=== PATIENT | male | born 1970 | race Caucasian/White ===

== ENCOUNTER 2020-09-16 21:45 | Emergency (ER) | payer BC, SELFPAY ==
[2020-09-16 22:09] VITALS: BP 126/81; BP 163/117; PULSE 111; PULSE 113; RESP 19; TEMP 36.8; O2SAT 94; O2SAT 95; BMI 42.5
--- NOTE | 2020-09-16 22:12 | ED.HEATRA ---
HPI - Head Injury General Chief complaint: General Medical Stated complaint: ETOH,FALL,+HEADSTRIKE,-THINNERS,+COLLAR Time Seen by Provider: 09/16/20 22:12 Source: EMS Mode of arrival: EMS Limitations: no limitations History of Present Illness HPI Narrative: Patient drank alcohol and smoked marijuana got up from bed and fell hitting back of head Complaint: head injury Onset (ago): hour(s) Arrival Conditions: C-spine immobilization present Mechanism of Injury: fall Place: home Loss of Consciousness: unsure Location of injury: occipital Severity: mild Related Data Allergies Allergy/AdvReac Type Severity Reaction Status Date / Time No Known Allergies Allergy Verified 09/16/20 22:40 Review of Systems Review of Systems: Yes Unobtainable due to mental status and Other (intoxication) Neurologic: Denies Sensory deficit (Neuro) [facility] Past Medical History Medical History Diverticulitis Hernia Hypothyroid Pre-diabetes Surgical History History of colon surgery Social History Social History Alcohol intake: current Alcohol intake frequency: 3 or more drinks per day Alcohol type: beer Smoking Status: Never smoker Use of substances other than those prescribed or required for medical reasons: Yes Substance Use Type: Marijuana Substance Use Frequency: Daily Advance Directives: No Advance Directives Information Provided: Yes Physical Exam Vital Signs: Vital Signs: Last Vital Signs Temp 98.2 F 09/16/20 22:09 Pulse 114 H 09/16/20 23:20 Resp 16 09/16/20 23:20 BP 128/76 09/16/20 23:20 Pulse Ox 93 09/16/20 23:20 Body Mass Index 42.5 Const: Other: obese male in c collar, intoxicated Nutritional Appearance: obese Orientation/consciousness: oriented to person Limitations: altered mental status HENMT: Head: Yes normal to inspection Ears: external ears normal General nose exam: Normal external nose present Mouth: Normal oral and palatal mucosa present and oropharynx normal Throat: Yes posterior oropharynx normal Eyes: General: appearance normal, both eyes and all related structures Neck: Other: supple Neck: Yes normal visual inspection Chest: Chest palpation & inspection: normal inspection of the chest Resp: Auscultation: clear to auscultation bilaterally Cardio: Jugular venous distension: no JVD Rate: regular rate Rhythm: regular rhythm Heart sounds: S1 normal heart sound present and S2 normal heart sound present GI: Inspection: Yes normal to inspection Palpation (GI): Soft to palpation, nontender and No hepatosplenomegaly present Auscultation: normal bowel sounds : General: Yes no CVA tenderness Back/Spine/Pelvis: Back: no CVA tenderness Skin: General skin exam: no rashes or lesions noted Neuro: General: oriented to person Cranial nerves: Yes CN's II-XII intact bilaterally Motor exam (neuro): 5/5 motor strength present throughout Sensory Exam: No Sensory deficit (Neuro) Extrem: General: Yes normal to inspection Psych: Appearance: grossly normal Procedures Procedure Narrative Procedure Narrative: Patient prepped with betadine, 4 adrienne placed, patient tolerated procedure well MDM - Head Injury MDM Narrative Medical decision making narrative: Patient intoxicated with fall and head laceration will dc home. CT of cervical spine and head are negative Imaging Data CT scan - head: Radiologist's impression: no brain injury CT neck: Radiologist's impression: no fracture Discharge Plan Discharge Clinical Impression: Laceration of head Qualifiers: Encounter type: initial encounter Location of open wound of head: scalp Foreign body presence: without foreign body Qualified Code(s): S01.01XA - Laceration without foreign body of scalp, initial encounter Alcohol intoxication Qualifiers: Complication of substance-induced condition: uncomplicated Qualified Code(s): F10.920 - Alcohol use, unspecified with intoxication, uncomplicated Patient Disposition: Home, Self-Care Instructions: Laceration (ED) Additional Instructions: staple removal 10 days Referrals: Angélica Thomas NP [Primary Care Provider] - 2 days
--- NOTE | 2020-09-16 22:40 | CT_ITS ---
EXAMINATIONS: CT HEAD WITHOUT CONTRAST AND CT CERVICAL SPINE WITHOUT CONTRAST CLINICAL INFORMATION: Fall. Trauma. COMPARISON: None. TECHNIQUE: Contiguous helical images of the brain were obtained without IV contrast. Contiguous helical images of the cervical spine were obtained without IV contrast. Multiplanar reconstructions were performed. DLP: 979 mGy-cm. FINDINGS: There are no pathologic extra-axial fluid collections. The lateral, third, fourth ventricles are nondilated and concordant with the appearance of the sulci. There is no evidence for acute intraparenchymal hemorrhage or infarct. There is neither mass nor mass effect. There is no shift of midline structures. The paranasal sinuses and mastoid air cells are clear. There are no osseous lesions. The cervical vertebra are in normal alignment. Disc heights and vertebral heights are well-preserved. There are no fractures. There is no prevertebral soft tissue swelling. There is no cervical lymphadenopathy. The visualized lung apices are clear. CT/CT head/brain wo con IMPRESSION: No evidence for acute intracranial injury. No evidence for acute injury to the cervical spine. Automated exposure control (Care Dose) Adjustment of the mA and/or kv according to patient size (this includes techniques or standardized protocols for targeted exams where dose is matched to indication / reason for exam; i.e. extremities or head).
--- NOTE | 2020-09-16 22:40 | CT_ITS ---
EXAMINATIONS: CT HEAD WITHOUT CONTRAST AND CT CERVICAL SPINE WITHOUT CONTRAST CLINICAL INFORMATION: Fall. Trauma. COMPARISON: None. TECHNIQUE: Contiguous helical images of the brain were obtained without IV contrast. Contiguous helical images of the cervical spine were obtained without IV contrast. Multiplanar reconstructions were performed. DLP: 979 mGy-cm. FINDINGS: There are no pathologic extra-axial fluid collections. The lateral, third, fourth ventricles are nondilated and concordant with the appearance of the sulci. There is no evidence for acute intraparenchymal hemorrhage or infarct. There is neither mass nor mass effect. There is no shift of midline structures. The paranasal sinuses and mastoid air cells are clear. There are no osseous lesions. The cervical vertebra are in normal alignment. Disc heights and vertebral heights are well-preserved. There are no fractures. There is no prevertebral soft tissue swelling. There is no cervical lymphadenopathy. The visualized lung apices are clear. CT/CT cervical spine wo con IMPRESSION: No evidence for acute intracranial injury. No evidence for acute injury to the cervical spine. Automated exposure control (Care Dose) Adjustment of the mA and/or kv according to patient size (this includes techniques or standardized protocols for targeted exams where dose is matched to indication / reason for exam; i.e. extremities or head).
[2020-09-16 23:20] VITALS: BP 128/76; PULSE 114; RESP 16; O2SAT 93
--- NOTE | 2020-09-16 23:20 | PC.NURSE ---
Report taken from Cristin, acosta RN resuming care. Pt found laying supine in bed, awaiting CT. Pt medicated with Tetanus per EMAR. VSS. Continue to monitor.
--- NOTE | 2020-09-17 00:05 | PC.NURSE ---
MD at bedside, 4 adrienne applied to head lac. Pt aware of plan to DC home with a sober ride.
[2020-09-17] MEDS: Lidocaine HCl 2%/Epi 1:100,000 20 ML VIAL INFILTRATI ×2 (00:20)
--- NOTE | 2020-09-17 00:20 | PC.NURSE ---
Lidocaine 2% with Epi 20 ml x 2 pulled for procedure. MD changing order as 1% with Epi not stocked in pyxis. This RN having difficulty scanning 2% vial.
--- NOTE | 2020-09-17 00:23 | PC.NURSE ---
Pt requesting this RN to call his to obtain a sober ride home. [phone] Sarahi. not answering the phone at this time.
--- NOTE | 2020-09-17 00:30 | PC.NURSE ---
Pt requesting food and drink, given shell crackers and gingerale.
--- NOTE | 2020-09-17 00:37 | PC.NURSE ---
This RN able to get a hold of pts , leaving work soon and able to pick pt up by 2 am.
[2020-09-17 01:01] VITALS: BP 119/74; PULSE 106; RESP 169; O2SAT 96
--- NOTE | 2020-09-17 01:23 | PC.NURSE ---
arriving to transport pt home. Pt provided with socks and a hospital gown for transport home as he arrived with no belongings.
== END 2020-09-17 01:24 | disposition home or self-care (01) ==
PROVIDERS: Emergency Provider Emergency Medicine; PCP Nurse Practitioner Family
DX: S01.01XA Laceration without foreign body of scalp, initial encounter (principal); F10.920 Alcohol use, unspecified with intoxication, uncomplicated; F12.90 Cannabis use, unspecified, uncomplicated; G44.309 Post-traumatic headache, unspecified, not intractable; W01.0XXA Fall on same level from slipping, tripping and stumbling without subsequent striking against object, initial encounter; Y93.9 Activity, unspecified; Y92.009 Unspecified place in unspecified non-institutional (private) residence as the place of occurrence of the external cause; Y99.9 Unspecified external cause status; Z23 Encounter for immunization
CPT/HCPCS: 70450; 72125; 90471; 90715; 99284

== ENCOUNTER 2020-10-07 12:54 | Outpatient (REF) | payer BC, SELFPAY | END 2020-10-07 12:55 | disposition home or self-care (01) | LOC: HO.LAB 12:54 | PROVIDERS: Visit Provider Internal Medicine | DX: Z20.828 Contact with and (suspected) exposure to other viral communicable diseases (principal) | CPT/HCPCS: C9803; U0003 ==